=== PATIENT | male | born 2000 | race Hispanic/Latino ===

== ENCOUNTER → 2024-03-16 | Outpatient (CLI) | payer OTHER | LOC: EDBD 09:38 → M OUTALCOH 09:38 → EDSEX 09:38 | PROVIDERS: ATTEND Psychiatry & Neurology Psychiatry | DX: Z03.89 Encounter for observation for other suspected diseases and conditions ruled out (principal) ==

== ENCOUNTER 2024-04-12 16:00 | Outpatient (RCR) | payer OTHER | END 2024-04-14 | LOC: M OUTALCOH 16:00 | PROVIDERS: ATTEND Psychiatry & Neurology Psychiatry | DX: F10.10 Alcohol abuse, uncomplicated (principal) ==

== ENCOUNTER 2024-05-10 16:00 | Outpatient (RCR) | payer OTHER | END 2024-05-14 | LOC: M OUTALCOH 16:00 | PROVIDERS: ATTEND Psychiatry & Neurology Psychiatry | DX: F10.10 Alcohol abuse, uncomplicated (principal) | CPT/HCPCS: 90853; G0397 ==

== ENCOUNTER 2024-05-31 11:00 | Outpatient (RCR) | payer OTHER | END 2024-06-14 | LOC: M OUTALCOH 11:00 | PROVIDERS: ATTEND Psychiatry & Neurology Psychiatry | DX: F10.10 Alcohol abuse, uncomplicated (principal) ==

== ENCOUNTER 2024-06-28 14:44 | Outpatient (RCR) | payer OTHER | END 2024-07-14 | LOC: M OUTALCOH 14:44 | PROVIDERS: ATTEND Psychiatry & Neurology Psychiatry | DX: F10.10 Alcohol abuse, uncomplicated (principal) ==